=== PATIENT | female | born 1995 | race Caucasian/White ===

== ENCOUNTER 2017-12-31 06:51 | Day surgery (SDC) | payer OTHER ==
[2017-12-31] MEDS ORDERED: LIDOCAINE 2% (SDV) 5 ML INJ (08:44)
[2017-12-31] MEDS ORDERED: PROPOFOL 40 ML (08:44)
== END 2017-12-31 11:51 | disposition home or self-care (01) ==
LOC: GIL 06:51
DX: K29.70 Gastritis, unspecified, without bleeding (principal); K64.8 Other hemorrhoids
CPT/HCPCS: 43239; 84703; 88305; 88312